=== PATIENT | female | born 2005 | race Hispanic/Latino ===

== ENCOUNTER 2024-12-19 12:50 | Emergency (ER) | payer SELFPAY ==
[2024-12-19 12:56] VITALS: BP 112/83
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
[2024-12-19 19:07] VITALS: BP 110/78
== END 2024-12-19 19:09 | disposition home or self-care (01) ==
LOC: EMR 12:50
PROVIDERS: EMERGENCY PHYSICIAN Emergency Medicine
DX: M50.20 Other cervical disc displacement, unspecified cervical region (principal); R42 Dizziness and giddiness; M25.552 Pain in left hip; V49.50XA Passenger injured in collision with unspecified motor vehicles in traffic accident, initial encounter; W22.10XA Striking against or struck by unspecified automobile airbag, initial encounter; Y92.410 Unspecified street and highway as the place of occurrence of the external cause
CPT/HCPCS: 99284; 70450; 72125; 93005

== ENCOUNTER 2025-02-04 09:53 | Emergency (ER) | payer SELFPAY ==
[2025-02-04 09:56] VITALS: BP 122/77
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
[2025-02-04 12:02] VITALS: BMI 27.6
[2025-02-04] MEDS: NSS 1000 IV (12:09)
[2025-02-04 12:10] VITALS: BP 120/70
[2025-02-04] MEDS: ZOFRAN 4 MG IV (12:11)
[2025-02-04] MEDS: TYLENOL 650 MG PO (12:11)
[2025-02-04] MEDS: PEPCID 20 MG IV (12:12)
[2025-02-04] MEDS: MAALOX 40 PO (12:13)
[2025-02-04 12:35] LABS: Hematocrit 37.3 % (37.0-47.0); Hemoglobin 12.4 g/dL (12.0-16.0); Mean Corp Hgb Conc. 33.2 g/dL (33.0-37.0); Mean Corpuscular Volume 93.5 fL (81.0-99.0); Nucleated Red Blood Cells % 0 %; Platelet Count 217 10^3/uL (130-400); Red Cell Dist. Width 12.8 % (11.5-14.5)
[2025-02-04 12:54] LABS: HCG, Serum Qualitative Screen Negative
[2025-02-04 12:56] LABS: ALT (SGPT) 19 U/L (0-35); AST (SGOT) 22 U/L (14-36); Albumin 4.3 g/dl (3.5-5.0); Alkaline Phosphatase 64 U/L (38-126); Blood Urea Nitrogen 13 mg/dl (7-17); Calcium 9.5 mg/dl (8.4-10.2); Carbon Dioxide 27 mmol/L (22-30); Chloride 107 mmol/L (98-107); Estimated Creatinine Clearance > 125 ml/min; Glucose 91 mg/dl (70-99); Lipase 65 U/L (23-300); Potassium 5.0 mmol/L (3.5-5.1); Sodium 139 mmol/L (135-145); Total Protein 7.6 g/dl (6.3-8.2); eGFR > 60.00
[2025-02-04 13:00] VITALS: BP 104/76
[2025-02-04 14:00] VITALS: BP 107/70
== END 2025-02-04 14:55 | disposition home or self-care (01) ==
LOC: EMR 09:53
PROVIDERS: Physician Assistant; EMERGENCY PHYSICIAN Emergency Medicine
DX: R10.13 Epigastric pain (principal); R51.9 Headache, unspecified
CPT/HCPCS: 99284; 96374; 96375; 96361 ×2; 80053; 83690; 84703; 85025

== ENCOUNTER → 2025-02-26 11:30 | Outpatient (REF) | payer OTHER, SELFPAY ==
[2025-02-26 12:23] LABS: Hematocrit 38.4 % (37.0-47.0); Hemoglobin 12.9 g/dL (12.0-16.0); Mean Corp Hgb Conc. 33.6 g/dL (33.0-37.0); Mean Corpuscular Volume 93.7 fL (81.0-99.0); Nucleated Red Blood Cells % 0 %; Platelet Count 220 10^3/uL (130-400); Red Cell Dist. Width 12.9 % (11.5-14.5)
[2025-02-26 12:51] LABS: ALT (SGPT) 23 U/L (0-35); AST (SGOT) 25 U/L (14-36); Albumin 4.3 g/dl (3.5-5.0); Alkaline Phosphatase 71 U/L (38-126); Blood Urea Nitrogen 8 mg/dl (7-17); Calcium 9.7 mg/dl (8.4-10.2); Carbon Dioxide 27 mmol/L (22-30); Chloride 106 mmol/L (98-107); Glucose 88 mg/dl (70-99); HDL Cholesterol 51 mg/dl; LDL Cholesterol, Calculated 65 mg/dl; Magnesium 2.1 mg/dl (1.6-2.3); Potassium 4.8 mmol/L (3.5-5.1); Sodium 140 mmol/L (135-145); Total Protein 7.8 g/dl (6.3-8.2); Very Low Density Lipoprotein 10 mg/dl (0-30); eGFR > 60.00
[2025-02-26 13:04] LABS: Vitamin D, 25-OH*** 21.6 ng/mL (30-80)
[2025-02-26 13:42] LABS: Glycohemoglobin (HgbA1c) 5.2 % (4.0-5.6)
== END ==
LOC: REG 11:30
PROVIDERS: ATTENDING PHYSICIAN Student in an Organized Health Care Education/Training Program
DX: Z00.00 Encounter for general adult medical examination without abnormal findings (principal); R10.13 Epigastric pain
CPT/HCPCS: 36415; 80053; 80061; 82306; 83013; 83036; 83735; 84443; 85025